=== PATIENT | male | born 1985 | race Caucasian/White ===

== ENCOUNTER 2017-02-20 20:10 | Emergency (ER) | payer OTHER ==
[~2017-02-20] VITALS: Ht 185.4 cm; Wt 111.1 kg
[2017-02-20 20:12] VITALS: BP 124/85
[2017-02-20 20:43] LABS: URINE BILIRUBIN NEGATIVE (Negative); URINE BLOOD TRACE (Negative); URINE COLOR YELLOW; URINE GLUCOSE-RANDOM* NEGATIVE (Negative); URINE KETONES NEGATIVE (Negative); URINE LEUKOCYTES-REFLEX NEGATIVE (Negative); URINE PROTEIN (DIPSTICK) 1+ (Negative); URINE SPECIFIC GRAVITY 1.025 (1.003-1.035)
[2017-02-20 20:50] LABS: CASTS None Seen /LPF (None Seen); CRYSTALS None Seen /LPF (None Seen); SQUAMOUS None Seen /LPF (0-3); URINE RBC 0-2 Rare /HPF (0-2); URINE WBC-REFLEX None Seen /HPF (0-5)
[2017-02-20 20:52] LABS: MCHC 35.3 g/dL (28.0-37.0); PLATELET COUNT 172 thou/uL (150-400); WBC 7.4 thou/uL (4.0-11.0)
[2017-02-20 20:53] LABS: HEMATOCRIT 47.5 % (42.0-52.0); HEMOGLOBIN 16.8 gm/dL (14.0-18.0); MCH 30.4 pg (26.0-34.0); MCV 86.1 fL (80.0-100.0); RBC 5.52 mil/uL (4.50-6.00); RDW 13.3 % (10.5-14.5)
[2017-02-20 20:54] LABS: MANUAL DIFF YES
[2017-02-20 21:01] LABS: CREATININE 1.2 mg/dL (0.7-1.3); POTASSIUM 3.5 mmol/L (3.5-5.1)
[2017-02-20 21:06] LABS: ALBUMIN 3.9 g/dL (3.4-5.0); TOTAL BILIRUBIN 1.1 mg/dL (<0.1-1.0); TOTAL PROTEIN 6.9 g/dL (6.4-8.2)
[2017-02-20 21:17] LABS: TOTAL CELL COUNT 100
[2017-02-20 21:18] LABS: ABSOLUTE NEUTROPHILS 6.4 thou/uL (1.4-8.2); LARGE PLATELETS RARE
[2017-02-20] MEDS ORDERED: ONDANSETRON HCL4 M2 PO (21:51)
== END 2017-02-20 21:51 | disposition home or self-care (01) ==
LOC: ER 20:10
PROVIDERS: Emergency Medicine
DX: R11.2 Nausea with vomiting, unspecified (principal); R19.7 Diarrhea, unspecified; K21.9 Gastro-esophageal reflux disease without esophagitis; F32.9 Major depressive disorder, single episode, unspecified; F41.9 Anxiety disorder, unspecified; F17.210 Nicotine dependence, cigarettes, uncomplicated; F10.99 Alcohol use, unspecified with unspecified alcohol-induced disorder; F12.10 Cannabis abuse, uncomplicated; Z88.1 Allergy status to other antibiotic agents

== ENCOUNTER 2019-12-28 19:42 | Emergency (ER) | payer OTHER ==
[~2019-12-28] VITALS: Ht 185.4 cm; Wt 127.0 kg
[~2019-12-28 19:42] MED LIST: ONDANSETRON HCL4 M2 PO
[2019-12-28] MEDS ORDERED: ATIVAN0.5 M1 PO (20:23)
[2019-12-28] MEDS ORDERED: EFFEXOR XR37.5 MG PO (20:24)
[2019-12-28] MEDS ORDERED: ADDERALL 10 MG10 MG PO (20:25)
[2019-12-28 20:43] VITALS: BP 146/97
== END 2019-12-28 20:44 | disposition home or self-care (01) ==
LOC: ER 19:42
DX: S51.852D Open bite of left forearm, subsequent encounter (principal); R51 Headache; M54.9 Dorsalgia, unspecified; R53.83 Other fatigue; M79.10 Myalgia, unspecified site; R50.9 Fever, unspecified; K21.9 Gastro-esophageal reflux disease without esophagitis; F17.210 Nicotine dependence, cigarettes, uncomplicated; Z23 Encounter for immunization; Z79.899 Other long term (current) drug therapy; Z88.1 Allergy status to other antibiotic agents; W55.01XD Bitten by cat, subsequent encounter